=== PATIENT | male | born 1960 | race Caucasian/White ===

== ENCOUNTER 2021-04-26 03:54 | Outpatient (CLI) | payer OTHER, SELFPAY ==
[2021-04-26 13:37] LABS: ALT 37 U/L (16-63); AST 22 U/L (15-37); Albumin 4.4 g/dL (3.4-5.0); Alkaline Phosphatase 74 U/L (46-116); Anion Gap 9.5 mmol/L (3-11); BUN 26 mg/dL (7-18); Bilirubin, Total 0.7 mg/dL (0.2-1.0); CO2 29.5 mmol/L (21.0-32.0); CREATININE 0.9 mg/dL (0.70-1.30); Calcium 8.9 mg/dL (8.5-10.1); Calculated LDL 75 mg/dL (<100); Chloride 102 mmol/L (98-107); Cholesterol 126 mg/dL (<200); Glucose 129 mg/dL (74-106); HDL Cholesterol 38 mg/dL (40-60); Potassium 3.8 mmol/L (3.5-5.1); Sodium 141 mmol/L (136-145); Triglyceride 69 mg/dL (<150)
[2021-04-26 13:43] LABS: COMMENT (LAB VIEW ONLY) 118.42 mg/dL; Microalb ug/mg Crea 34.3 ug/mg Cr
== END 2021-04-26 03:55 | disposition home or self-care (01) ==
PROVIDERS: PCP Family Medicine; Visit Provider Family Medicine
DX: E78.5 Hyperlipidemia, unspecified; E11.65 Type 2 diabetes mellitus with hyperglycemia
CPT/HCPCS: 36415; 80053; 80061; 82043; 82570

== ENCOUNTER 2021-11-16 10:17 | Outpatient (CLI) | payer OTHER, SELFPAY ==
--- NOTE | 2021-11-16 09:15 | DI.RAD_ITS ---
Exam(s) XR KNEE RT 3V AP,LAT,LUDA EXAM: XR KNEE RT 3V AP,LAT,LUDA CLINICAL HISTORY: knee pain. TECHNIQUE: 2D digital imaging was performed. Three views. COMPARISON: No exams were available for comparison FINDINGS: BONES: No acute fracture is present. No bony destructive lesion is seen. JOINTS: There is marked narrowing of the medial femoral tibial joint space causing mild varus angulat ion. There is widening of the lateral femoral tibial joint space which shows periarticular spurring. . A small joint effusion is seen. Chondrocalcinosis is present. There is also joint space narrowing at the patellofemoral joint which shows some irregularity. SOFT TISSUE: Calcifications in the posterior soft tissues, likely loose bodies within a Jarrett's cyst. IMPRESSION: Severe degenerative changes of the medial femoral tibial joint space. Loose bodies likely within a B vijay's cyst. DATA REPOSITORY: RADIATION DOSE DELIVERED:
== END 2021-11-16 10:18 | disposition home or self-care (01) ==
LOC: DIORS 10:17
PROVIDERS: PCP Family Medicine; Referring Provider Family Medicine; Visit Provider Physician Assistant
DX: M25.561 Pain in right knee (principal); M17.11 Unilateral primary osteoarthritis, right knee; M71.21 Synovial cyst of popliteal space [Baker], right knee; M25.461 Effusion, right knee; M23.41 Loose body in knee, right knee
CPT/HCPCS: 73562

== ENCOUNTER 2021-11-19 07:12 | Day surgery (SDC) | payer OTHER, SELFPAY ==
--- NOTE | 2021-11-19 06:28 | W.COLOREPORT ---
Colonoscopy Report Date of procedure: 11/19/21 Pre-op diagnosis general: Colon Cancer Screening and Hx of polyps Post-op diagnosis procedure note: other (polyps and diverticulosis) Procedure: Colonoscopy with polypectomy Surgeon: Luzmaria Mckeon Anesthesia Type: General:No Airway Estimated blood loss (mL): 2 Pathology: other (ascending and descending polyp) Complications: None Disposition: same day Indications: Mr. Gómez is a pleasant 61-year-old gentleman who is here to discuss a screening colonoscopy.? He does have a history of tubular adenoma back in 2009.? His colonoscopy in 2016 was normal.? He denies any changes in bowel habits, melena, hematochezia, unintentional weight loss or family history of colon cancer.? His past medical history is significant for diabetes, obesity, asthma with shortness of breath on exertion and increased alcohol intake.? We discussed the procedure in detail using layman's terms.? We reviewed the risks of the procedure.? I did ask him to stop his aspirin 5 days prior to the procedure.? I also asked him to bring his albuterol inhaler.? I did discuss with him that he is at higher risk for respiratory issues due to his weight as well as his history of asthma. Risks, benefits and complications have been reviewed. Complications include but are not limited to bleeding, pain, perforation, missed small lesion/polyp, sore throat, aspiration and adverse reaction to the medications. Questions were entertained and answered to their satisfaction and they wished to proceed. No guarantees were given or implied. Prep: Miralax/Dulcolax Procedure Start Time: 08:18 Procedure End Time: 08:40 Retraction Time: 13 minutes Findings: 2 small polyps mild descending and sigmoid diverticulosis Procedure Description: After informed consent was obtained the patient was taken to the procedure room and placed in a left decubitous position. Monitors were applied and a time out was done. The patients name, date of , procedure, allergies to medications and metal in their body was reviewed. The patient was then sedated. Once sedated and comfortable a rectal exam was done. External exam was normal. Internal exam revealed a normal sphincter tone and no palpable masses. The prostate felt smooth and slightly enlarged. The scope was then introduced and retro-flexed. No internal hemorrhoids, polyps or masses were identified on retro-flexion. The scope was then advanced to the cecum without difficulty. The ileocecal vlave and appendiceal orifice were identified. The prep was good. The scope was then slowly retracted over 13 minutes back into the rectum. Polyps were removed with cold forceps in the ascending and descending colon. There was mild descending and sigmoid diverticulosis noted. The scope was removed and the patient was woken up and taken back to Same day surgery in stable condition. The patient tolerated the procedure well and there were no immediate complications. Follow up: The patient should follow up in 5 years unless they develop changes in bowel habits or other new gastrointestinal complaints.
--- NOTE | 2021-11-19 06:29 | PDOC.DSDIS_ITS ---
Discharge Plan Disposition Patient Disposition: HOME Condition: Good Discharge Details Reason For Visit: Colonoscopy Attending Provider: Luzmaria Mckeon Primary Care Provider: Aftab Rai Home Meds and New Rx's Prescriptions: Continued tadalafil [Cialis] 5 mg tablet 5 mg PO DAILY Qty: 10 3RF Rybelsus 7 mg tablet 7 mg PO DAILY Qty: 90 3RF (DME) pen needle, diabetic [BD Ultra-Fine Jenny Pen Needle] 32 gauge x needle 1 ea Miscellaneous 6x's day Qty: 540 6RF Rx Instructions: BD Ultra fine 31G 10/10 to administer insulin 5x/day; E11.65 albuterol sulfate [Proventil HFA] 90 mcg/actuation HFA aerosol inhaler 2 puff Inhalation Q6H PRN Qty: 1 5RF Label Comments: pt does not recall last time he used albuterol (DME) FreeStyle Elizabeth 14 Day Sensor Kit See Rx Instructions .ROUTE .MEDSUPPLY Qty: 6 11RF Rx Instructions: As directed to keep AIC below 6.5, two per month metformin 1,000 mg tablet 1,000 mg PO BID Qty: 180 3RF Rx Instructions: for dm montelukast [Singulair] 10 mg tablet 10 mg PO HS Qty: 90 3RF simvastatin 40 mg tablet 40 mg PO DAILY Qty: 90 3RF Rx Instructions: to lower LDL under 100 insulin lispro [Humalog KwikPen Insulin] 100 unit/mL insulin pen See Rx Instructions SC DAILY MDD 95 units Qty: 45 11RF Dose Instruction: See below SC DAILY; Rx Instructions: Pre-PM meals: 1 u for BS >140, increase by 1 additional unit for every 10 mg/dL above 140; aspirin [Aspir-81] 81 MG tablet,delayed release (DR/EC) 81 mg PO DAILY 0RF (DME) blood sugar diagnostic [OneTouch Verio test strips] strip 1 ea Miscellaneous QID Qty: 300 12RF Rx Instructions: TO TEST BLOOD SUGARS QID TO LOWER HGB AIC TO LESS THAN 7, E11.65 (DME) FreeStyle Elizabeth 14 Day [place] Misc See Dose Instructions .ROUTE .MEDSUPPLY Qty: 1 0RF Dose Instruction: As directed Rx Instructions: As directed, to keep HbA1c below 6.5 Tresiba FlexTouch U-200 200 unit/mL (3 mL) insulin pen See Rx Instructions subcut BID Qty: 90 11RF Rx Instructions: 48 qAM, 44qhs; Dx: E11.9; To keep HbA1c less than 6.5% Farxiga 10 mg tablet 10 mg PO DAILY 90 Days Qty: 90 3RF losartan 100 mg tablet 100 mg PO DAILY Qty: 90 3RF Label Comments: pt reports he should have taken this medication last night but he forgot hydrochlorothiazide 25 mg tablet 25 mg PO HS 0RF Discontinued bisacodyl [Dulcolax (bisacodyl)] 5 mg tablet,delayed release (DR/EC) 5 mg PO ONCE Qty: 4 0RF Rx Instructions: Take according to provider's instructions for colonoscopy prep. polyethylene glycol 3350 17 gram/dose powder 17 g PO ONCE Qty: 238 0RF Rx Instructions: To be taken as directed by prescriber's office for colonoscopy prep. Discharge Instructions Instructions: Colorectal Polyps (DC), Diverticulosis (DC) Additional Instructions: Findings: 2 small polyps diverticulosis Follow up: 5 years Please call if you develop: fevers >101.5 Nausea or Vomiting Abdominal pain that is not transient Rectal bleeding that is more then a tbsp A hard abdomen and inability to pass gas DAY SURGERY UNIT POST ENDOSCOPY INSTRUCTIONS Instructions for everyone who is given Anesthesia: For your safety, please do the following for the next 24 Hours: a. Do not drive or operate dangerous equipment b. Do not drink alcohol beverages or use any recreational drugs for the first 24 hours or while taking pain medications. The medications in your body may have a reaction that can be dangerous. c. Do not make any important decisions or sign any important papers 1. Generally there are no restrictions on your activity after a day or so has gone by, but you may feel a bit fatigued for a few days. 2. After you arrive home you may have a light meal and return to a normal diet as you can tolerate it without feeling sick to your stomach. 3. After surgery, you may feel pain or discomfort. This should be only transient , but if it persists please contact your doctor. 4. If there are any questions regarding the findings of your procedure, please feel free to contact your doctor. 6. If you are unable to contact your doctor with a problem, contact the hospital at [phone]. 7. Continue all your regular medications unless directed otherwise. I understand the above instructions and have no questions. Signature of Patient or Responsible Adult Escort Date/Time Name of Responsible Adult Escort Signature of Nurse Date/Time Activity:: Activity as Tolerated Diet:: high fiber diet Discharge Orders Discharge Orders: Discharge Order (Routine); Ordered 11/19/21 Ordered By: Luzmaria Mckeon
[2021-11-19 07:40] VITALS: BP 163/86; PULSE 91; RESP 17; TEMP 36.3; O2SAT 98
[2021-11-19] MEDS: Lactated Ringers 1,000 ML 80 ML IV (07:49)
--- NOTE | 2021-11-19 07:59 | ANES.PREOP_ITS ---
General Info Date of Service Date Performed: 11/19/21 Height: 5 ft 10 in Weight: 120.9 kg Body Mass Index (BMI): 38.2 Surgical Procedure: Operation Date: 11/19/21 08:20 Proposed Procedure Side Surgeon fior Mckeon MD Meds Allergies and Home Medications Allergies Allergy/AdvReac Type Severity Reaction Status Date / Time exenatide [From [place]] Allergy Intermediate Hives Verified 11/19/21 07:26 lisinopril AdvReac Mild cough Verified 11/19/21 07:26 Home Medication Medication Instructions Recorded aspirin 81 mg tablet,delayed 81 mg PO DAILY tab 11/05/12 release (Aspir-) blood sugar diagnostic (OneTouch #300 strip 05/04/18 Verio test strips) tadalafil 5 mg tablet (Cialis) 5 mg PO DAILY #10 tab 01/08/19 pen needle, diabetic 32 gauge x #540 pen 04/18/20/32 (BD Ultra-Fine Jenny Pen Needle) flash glucose scanning reader #1 each 06/19/20 (FreeStyle Elizabeth 14 Day [place]) insulin degludec 200 unit/mL (3 See Rx Instructions SUBCUT BID #90 11/13/20 mL) subcutaneous pen (Tresiba ml FlexTouch U-200 insulin) albuterol sulfate 90 mcg/actuation 2 puff INHALATION Q6H PRN #1 puff 03/02/21 aerosol inhaler (Proventil HFA) semaglutide 7 mg tablet (Rybelsus) 7 mg PO DAILY #90 tab 03/30/21 dapagliflozin 10 mg tablet 10 mg PO DAILY 90 Days #90 tab 05/18/21 (Farxiga) losartan 100 mg tablet 100 mg PO DAILY #90 tab 05/18/21 flash glucose sensor (FreeStyle #6 ea 08/14/21 Elizabeth 14 Day Sensor) insulin lispro 100 unit/mL See Rx Instructions SC DAILY #45 08/31/21 subcutaneous pen (Humalog KwikPen ml MDD 95 units (U-100) Insulin) metformin 1,000 mg tablet 1,000 mg PO BID #180 tab 08/31/21 montelukast 10 mg tablet 10 mg PO HS #90 tab 08/31/21 (Singulair) simvastatin 40 mg tablet 40 mg PO DAILY #90 tab 08/31/21 bisacodyl 5 mg tablet,delayed 5 mg PO ONCE #4 tab 11/02/21 release (Dulcolax (bisacodyl)) polyethylene glycol 3350 17 17 g PO ONCE #238 g 11/02/21 gram/dose oral powder hydrochlorothiazide 25 mg tablet 25 mg PO HS 11/15/21 Current Visit Medications: Current Medications Generic Name Dose Route Start Last Admin Trade Name Freq PRN Reason Stop Dose Admin Hyoscyamine Sulfate 0.125 mg 11/19/21 06:29 Hyoscyamine 0.125 Mg Sl/Oral/Chew SL DIRECTED PRN Ringer's Solution 1,000 mls @ 80 mls/hr 11/19/21 06:00 11/19/21 07:49 IV 12/16/21 23:59 80 mls/hr INFUSION ISA Administration IV Miscellaneous Supplies 1 each 11/19/21 06:00 Iv Access IV 12/16/21 23:59 DIRECTED ISA Ondansetron HCl 4 mg 11/19/21 06:29 Ondansetron 4 Mg/2 Ml Vial IVP Q4H PRN PRN Nausea / Vomiting Sodium Chloride 0 ml 11/19/21 06:00 Normal Saline Flush 10 Ml Syr IV 12/16/21 23:59 PRN PRN Sodium Chloride 0 ml 11/19/21 06:00 Normal Saline 10 Ml Vial IJ 12/16/21 23:59 DIRECTED PRN Sterile Water 0 ml 11/19/21 06:00 Water,Injection,Sterile 10 Ml Vial IJ 12/16/21 23:59 DIRECTED PRN PFSH Active Problems Active Problems: Problem Status Onset Code Primary osteoarthritis of right knee M17.11 Benign neoplasm of colon 12/04/09 D12.6 History of alcoholism 09/13/11 F10.21 Morbid obesity 09/13/11 E66.01 Type II diabetes mellitus, uncontrolled E11.65 Screening for colon cancer Z12.11 Medical History Medical History Adenomatous colon polyp (12/04/09) one tubular adenoma, [place] Alcohol abuse (10/30/05) Arthritis of knee, right Asthma (07/27/79) Asthma (07/29/74) MILD PERSISTENT; FEV1 2.72 2005, 72% PRED, 74% FVC Carpal tunnel syndrome (11/25/01) Carpal tunnel syndrome (09/13/11) Chronic alcoholism in remission (09/13/11) Vodka ( a fifth/wk 3.5 oz/d) Chronic rhinitis (09/13/11) Contact dermatitis Diabetes mellitus (11/24/98) Diabetes mellitus (10/26/98) Erectile dysfunction (11/02/05) Essential hypertension (09/13/11) History of tobacco abuse (02/14/09) Hyperlipidemia (09/13/11) Hypertension (10/26/07) Hypertension (09/13/11) 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 pt reports he hasnt taken any medications since 11/15/21. Pt reports he has missing teeth; x1 on top back, x2 bottom back. pt reports he had a steroid shot in his R knee on 11/16/21. Surgical History Surgical History History of colonoscopy Repair of inguinal hernia (02/09/03) Vasectomy (07/27/87) Tobacco Smoking/Tobacco Use Status: Former Tobacco Use Alcohol Alcohol Intake: current Alcohol intake frequency: 3 or more drinks per day Alcohol type: hard liquor Details: 8 oz of [place] per night Substance Use Substance use: Never Substance use type: does not use Details: last had a drink 6 days ago 11/13/21 Vital Signs and Lab Results Vital Signs Most Recent Vital Signs in EMR: Most Recent Vital Signs Temp Pulse Resp BP Pulse Ox 36.3 C L 91 H 17 163/86 H 98 11/19/21 07:40 11/19/21 07:40 11/19/21 07:40 11/19/21 07:40 11/19/21 07:40 Point of Care Results Point of Care Results: Finger Stick Blood Glucose 227 11/19/21 07:21 Lab Results Blood Type / Crossmatch: No Data to Display Complete Blood Count: No Data to Display Complete Metabolic Panel: Hemoglobin A1c 7.0 % (4.5-5.7) H 11/15/21 07:03 11/15/21 Liver Function Panel: No Data to Display Coagulation Panel: No Data to Display Cardiac Panel: No Data to Display Arterial Blood Gas: No Data to Display Venous Blood Gas: No Data to Display Pancreas Panel: No Data to Display Thyroid Panel: No Data to Display Infectious Disease: No Data to Display Blood Cultures: No Data to Display Toxicology Panel: No Data to Display Anesthesia Assessment and Plan Anesthesia History Personal History: No History of Anesthesia Complications Family History: No Family History of Anesthesia Complications Exercise Tolerance Exercise Tolerance: Metabolic Equivalents>4 Cardiac & Pulmonary Exam Cardiac Exam: Normal S1/S2 Heart Sounds Pulmonary Exam: Clear Bilateral Breath Sounds Implantable Cardiac Device Does patient have a Pacemaker or an ICD?: No Airway Exam Known Difficult Airway: No Mallampati Class: 2 Mouth Opening: Normal (> 3cm) Thyromental Distance: Greater than 3 cm Neck Range of Motion: Full ROM Neck Circumference: Thick Teeth Condition: Normal Dentition ASA Classification ASA Score: ASA 3 Emergency Case?: No NPO Status NPO Status: NPO Clears >2 hours, Solids >8 hours Anesthesia Plan Resuscitation Status: Full Code Anesthesia Technique: General Anesthesia Airway Planned: Natural Airway Monitors Used: Standard Monitors
[2021-11-19 08:01] VITALS: BMI 38.2
--- NOTE | 2021-11-19 08:30 | BOWEL_PTH ---
PATIENT: Kevin Gómez LOC: [facility] U#:[id number] AGE/SX: 61/M ROOM: RE11/19/[address]: Luzmaria Mckeon MD : [id number] BED: DIS: 11/19/2021 SPEC #: [id number] RECD: 11/19/21 12:50 STATUS: SUSAN REQ #: [id number] MICHELE: 11/19/21 08:[address]: Luzmaria Mckeon DEPT: Surgical Specimen RECD BY: Britany Mae ENTERED: 11/19/21 12:51 SP TYPE: Bowel OTHR DR: Aftab Rai DO Tissues: 1 - BIOPSY BOWEL 2 - BIOPSY BOWEL Procedures: GROSS AND MICRO LEVEL 4 Comments: [id number]
[2021-11-19 08:49] VITALS: BP 120/85; PULSE 86; RESP 16; TEMP 36.2; O2SAT 92
--- NOTE | 2021-11-19 08:54 | W.ANESPOSTOP ---
Postoperative Evaluation Date, Time and Location Date Performed: 11/19/21 Time Performed: 08:54 Patient Location: Day Surgery Unit Vital Signs Most Recent Imported Vital Signs: Most Recent Vital Signs Temp Pulse Resp BP Pulse Ox 36.2 C L 86 16 120/85 92 11/19/21 08:49 11/19/21 08:49 11/19/21 08:49 11/19/21 08:49 11/19/21 08:49 Pain Score Most Recent Pain Score: Most Recent Pain Score Pain Level 0 11/19/21 08:49 Assessment Mental Status: Awake (Alert & Oriented to Patient Baseline) Airway and Respiratory Function: Patent airway with normal (patient baseline) respiratory exam Cardiovascular Function: Hemodynamically Stable Hydration Status: Adequately Hydrated Nausea & Vomiting: No Nausea or Vomiting Pain: Pt. Denies Any Pain Peripheral Nerve Block: Patient did not receive a nerve block
[2021-11-19 09:28] VITALS: BP 104/86; PULSE 89; RESP 18; TEMP 36.5; O2SAT 94
== END 2021-11-19 09:50 | disposition home or self-care (01) ==
LOC: SUR 07:12
PROVIDERS: PCP Family Medicine; Visit Provider Surgery
PROC: 0DJD8ZZ Inspection of Lower Intestinal Tract, Via Natural or Artificial Opening Endoscopic (ICD-10-PCS; CPT 45378; principal; 2021-11-19 08:15)
DX: Z12.11 Encounter for screening for malignant neoplasm of colon (principal); Z86.010 Personal history of colon polyps; K63.5 Polyp of colon; K57.30 Diverticulosis of large intestine without perforation or abscess without bleeding; D17.5 Benign lipomatous neoplasm of intra-abdominal organs
CPT/HCPCS: 45380; 88305; J2001

== ENCOUNTER 2022-05-06 02:57 | Outpatient (CLI) | payer OTHER, SELFPAY ==
[2022-05-06 08:27] LABS: ALT 31 U/L (16-63); AST 17 U/L (15-37); Albumin 4.4 g/dL (3.4-5.0); Alkaline Phosphatase 82 U/L (46-116); Anion Gap 10.6 mmol/L (3-11); BUN 27 mg/dL (7-18); Bilirubin, Total 0.8 mg/dL (0.2-1.0); CO2 29.4 mmol/L (21.0-32.0); CREATININE 0.9 mg/dL (0.70-1.30); Calcium 9.4 mg/dL (8.5-10.1); Chloride 99 mmol/L (98-107); Estimated GFR 95.97 (mL/min/1.73m2); Glucose 135 mg/dL (74-106); Potassium 3.9 mmol/L (3.5-5.1); Sodium 139 mmol/L (136-145); Total Protein 8.1 g/dL (6.4-8.2)
[2022-05-07 09:25] LABS: Hepatitis C Ab w Rflx HCV PCR Negative (Negative)
[2022-05-07 09:52] LABS: HIV-1/2 Ag & Ab Screen Negative (Negative)
== END 2022-05-06 02:58 | disposition home or self-care (01) ==
LOC: LBO 02:57
PROVIDERS: PCP Family Medicine; Visit Provider Family Medicine
DX: E11.65 Type 2 diabetes mellitus with hyperglycemia (principal); Z11.3 Encounter for screening for infections with a predominantly sexual mode of transmission; Z11.4 Encounter for screening for human immunodeficiency virus [HIV]; Z11.59 Encounter for screening for other viral diseases
CPT/HCPCS: 36415; 80053; 86803; 87389

== ENCOUNTER 2023-04-03 04:15 | Outpatient (CLI) | payer BC, SELFPAY ==
[2023-04-07 10:51] LABS: ALT 38 U/L (7-55); ActiTest Grade A0-A1; ActiTest Interpretation no activity; ActiTest Score 0.21; Alpha-2-Macroglobulin 164 mg/dL (100 - 280); Apoliprotein A1 155 mg/dL (>=120); Bilirubin, Total 0.6 mg/dL (<=1.2); FibroTest Interpretation minimal fibrosis; FibroTest Score 0.32; FibroTest Stage F1-F2; GGT 52 U/L (8 - 61); Haptoglobin 91 mg/dL (30 - 200)
== END 2023-04-03 04:16 | disposition home or self-care (01) ==
PROVIDERS: PCP Family Medicine; Visit Provider Family Medicine
DX: F10.10 Alcohol abuse, uncomplicated (principal); F10.21 Alcohol dependence, in remission
CPT/HCPCS: 36415; 81596

== ENCOUNTER 2023-09-11 09:46 | Outpatient (CLI) | payer BC, SELFPAY ==
[2023-09-11 08:59] LABS: Abs Immature Grans 0.01 10^3/uL (0.0-0.06); Absolute Basophil Count 0.04 10^3/uL (0.0-0.2); Absolute Eosinophil Count 0.14 10^3/uL (0.0-0.7); Absolute Lymphocyte Count 1.23 10^3/uL (1.2-3.4); Absolute Monocyte Count 0.65 10^3/uL (0.1-0.8); Absolute Neutrophil Count 5.44 10^3/uL (1.2-6.7); Basophils % 0.5; Eosinophils % 1.9; HGB 15.5 g/dL (13.5-17.5); Immature Grans % 0.1; Lymphocytes % 16.4; MCH 32.7 pg (27.0-33.0); MCV 91 fL (80-95); MPV 8.8 fL (8.0-11.0); Monocytes % 8.7; Neutrophils % 72.4; Platelet Count 229 10^3/uL (130-400); RBC 4.74 10^6/uL (4.36-5.78); WBC 7.51 10^3/uL (4.4-10.8)
[2023-09-11 09:31] LABS: Hemoglobin A1C 6.8 % (<5.7)
[2023-09-11 09:36] LABS: ALT 32 U/L (16-63); AST 20 U/L (15-37); Albumin 4.1 g/dL (3.4-5.0); Alkaline Phosphatase 87 U/L (46-116); Bilirubin, Direct 0.2 mg/dL (0.0-0.2); Bilirubin, Total 0.7 mg/dL (0.2-1.0); C-Reactive Protein 0.51 mg/dL (<or=0.5); Total Protein 7.7 g/dL (6.4-8.2)
== END 2023-09-11 09:47 | disposition home or self-care (01) ==
PROVIDERS: PCP Family Medicine; Visit Provider Family Medicine
DX: E11.9 Type 2 diabetes mellitus without complications (principal); R61 Generalized hyperhidrosis
CPT/HCPCS: 36415; 80076; 83036; 85025; 86140

== ENCOUNTER 2025-03-21 04:41 | Outpatient (CLI) | payer MEDICARE, SELFPAY ==
[2025-03-21 08:07] LABS: ALT 56 U/L (16-63); AST 34 U/L (15-37); Albumin 4.0 g/dL (3.4-5.0); Alkaline Phosphatase 139 U/L (46-116); Anion Gap 9.4 mmol/L (3-11); BUN 24 mg/dL (7-18); Bilirubin, Total 0.9 mg/dL (0.2-1.0); CO2 27.6 mmol/L (21.0-32.0); Calcium 9.5 mg/dL (8.5-10.1); Chloride 99 mmol/L (98-107); Estimated GFR 94.19 (mL/min/1.73m2); Glucose 290 mg/dL (74-106); Potassium 3.9 mmol/L (3.5-5.1); Sodium 136 mmol/L (136-145); Total Protein 7.7 g/dL (6.4-8.2)
== END 2025-03-21 04:42 | disposition home or self-care (01) ==
LOC: LBO 04:41
PROVIDERS: PCP Family Medicine; Visit Provider Family Medicine
DX: I10 Essential (primary) hypertension (principal)
CPT/HCPCS: 36415; 80053